=== PATIENT | male | born 1950 | race Caucasian/White ===

== ENCOUNTER 2017-10-16 05:22 | Emergency (ER) | payer BC ==
[~2017-10-16] VITALS: Ht 175.3 cm; Wt 96.8 kg
[~2017-10-16 05:22] MED LIST: AMOXICILLIN/CL875 MG PO; ASPIRIN LOW81 M1 PO; ATENOLOL25 MG PO; CHONDROITIN PO; GLUCOSAMINE1 TA1 PO; SIMVASTATIN10 MG PO; VITAMIN C500 M1 PO; VITAMIN D1000 UNIT PO
[2017-10-16 05:58] LABS: HEMATOCRIT 46.4 % (39.0-50.0); IMMATURE GRANULOCYTES 0.4 % (0.0-1.0); MEAN CELL VOLUME 85.3 fL CALC (80.0-100.0); MEAN CORPUSCULAR HGB 29.4 pG CALC (26.0-32.0); MEAN CORPUSCULAR HGB CONC 34.5 g/L CALC (32.0-36.0); NEUT# 5.17 thou/uL (1.82-7.42); RED BLOOD COUNT 5.44 mill/uL (4.70-6.10); RED CELL DISTRI WIDTH 12.1 % (11.5-15.5)
[2017-10-16 06:03] LABS: ALBUMIN 4.2 g/dL (3.2-5.0); ALKALINE PHOSPHATASE 84 u/l (38-126); ANION GAP 16 (6-22 (CALC)); BILIRUBIN, TOTAL 0.8 mg/dL (0.0-1.4); BUN 21 mg/dL (8-23); BUN/CREATININE RATIO 23 (12-20 (CALC)); CARBON DIOXIDE 20 mmol/l (22-30); CHLORIDE 109 mmol/l (95-108); CREATININE 0.9 mg/dL (0.7-1.3); GFR > 60 ML/MIN (>=60 (CALC)); GFR FOR AFR.AMER. > 60 ML/MIN (>=60 (CALC)); POTASSIUM 3.8 mmol/l (3.5-5.1); SGOT/AST 51 u/l (19-48); SGPT/ALT 38 u/l (11-66); SODIUM 141 mmol/l (137-146); TOTAL PROTEIN 7.2 g/dL (6.3-8.2)
[2017-10-16 06:15] LABS: MYOGLOBIN 100 ng/mL (0 - 121)
[2017-10-16 10:03] VITALS: BP 147/70
== END 2017-10-16 10:31 | disposition home or self-care (01) | DRG 312 ==
LOC: ED 05:22
PROVIDERS: Emergency Medicine
DX: R55 Syncope and collapse (principal); R00.1 Bradycardia, unspecified; R42 Dizziness and giddiness; Y93.F9 Activity, other caregiving; Y92.230 Patient room in hospital as the place of occurrence of the external cause

== ENCOUNTER 2018-08-29 12:36 | Observation (INO) | payer BC ==
[~2018-08-29] VITALS: Ht 30.5 cm; Wt 97.6 kg
[2018-08-29 13:14] LABS: HEMATOCRIT 49.5 % (39.0-50.0); HEMOGLOBIN 16.6 g/dl (14.0-18.0); IMMATURE GRANULOCYTES 0.4 % (0.0-5.0); MEAN CELL VOLUME 86.7 fL CALC (80.0-100.0); MEAN CORPUSCULAR HGB 29.1 pG CALC (26.0-32.0); MEAN CORPUSCULAR HGB CONC 33.5 g/L CALC (32.0-36.0); NEUT# 5.94 thou/uL (1.82-7.42); RED BLOOD COUNT 5.71 mill/uL (4.70-6.10); RED CELL DISTRI WIDTH 12.4 % (11.5-15.5)
[2018-08-29 13:23] LABS: ALBUMIN 4.2 g/dL (3.2-5.0); ALKALINE PHOSPHATASE 80 u/l (38-126); ANION GAP 15 (6-22 (CALC)); BILIRUBIN, TOTAL 0.9 mg/dL (0.0-1.4); BUN 21 mg/dL (8-23); BUN/CREATININE RATIO 22 (12-20 (CALC)); CHLORIDE 105 mmol/l (95-108); CREATININE 0.9 mg/dL (0.7-1.3); GFR > 60 ML/MIN (>=60 (CALC)); GFR FOR AFR.AMER. > 60 ML/MIN (>=60 (CALC)); POTASSIUM 4.2 mmol/l (3.5-5.1); SGOT/AST 26 u/l (19-48); SODIUM 143 mmol/l (137-146); TOTAL PROTEIN 7.6 g/dL (6.3-8.2)
[2018-08-29 13:41] LABS: CARBON DIOXIDE 27 mmol/l (22-30)
[2018-08-29 13:53] LABS: D-DIMER 0.39 mg/L (0.19-0.60); INTERNATIONAL NORMALIZED RATIO 1.1 RATIO (0.7-1.3); PROTHROMBIN TIME 11.1 SECONDS (9.0-12.5)
[2018-08-29] MEDS ORDERED: AMLODIPINE5 MG PO (14:17)
[2018-08-29 16:14] VITALS: BP 150/102
[2018-08-29 19:39] VITALS: BP 156/95
[2018-08-30 00:31] VITALS: BP 124/75
[2018-08-30 04:45] VITALS: BP 128/85
[2018-08-30 05:57] LABS: HEMATOCRIT 45.1 % (39.0-50.0); HEMOGLOBIN 15.1 g/dl (14.0-18.0); IMMATURE GRANULOCYTES 0.5 % (0.0-5.0); MEAN CELL VOLUME 87.6 fL CALC (80.0-100.0); MEAN CORPUSCULAR HGB 29.3 pG CALC (26.0-32.0); MEAN CORPUSCULAR HGB CONC 33.5 g/L CALC (32.0-36.0); NEUT# 5.35 thou/uL (1.82-7.42); RED BLOOD COUNT 5.15 mill/uL (4.70-6.10); RED CELL DISTRI WIDTH 12.4 % (11.5-15.5)
[2018-08-30 06:10] LABS: ALBUMIN 3.4 g/dL (3.2-5.0); ALKALINE PHOSPHATASE 69 u/l (38-126); ANION GAP 12 (6-22 (CALC)); BUN 20 mg/dL (8-23); BUN/CREATININE RATIO 21 (12-20 (CALC)); CARBON DIOXIDE 25 mmol/l (22-30); CHLORIDE 107 mmol/l (95-108); GFR > 60 ML/MIN (>=60 (CALC)); GFR FOR AFR.AMER. > 60 ML/MIN (>=60 (CALC)); POTASSIUM 4.4 mmol/l (3.5-5.1); SGOT/AST 21 u/l (19-48); SODIUM 140 mmol/l (137-146); TOTAL PROTEIN 6.2 g/dL (6.3-8.2)
[2018-08-30 08:49] VITALS: BP 133/79
[2018-08-30 11:23] VITALS: BP 133/85
[2018-08-30 15:38] VITALS: BP 142/73
[2018-08-30] MEDS ORDERED: LOPRESSOR25 MG PO (16:55)
[2018-08-30] MEDS ORDERED: ELIQUIS2.5 MG PO (17:30)
== END 2018-08-30 17:20 | disposition home or self-care (01) | DRG 310 ==
LOC: ED 12:36 → ED-I 13:54 → ED 14:07 → MS2 14:07
PROVIDERS: Emergency Medicine; ADMIT Internal Medicine Nephrology; ATTEND Internal Medicine Nephrology
DX: I48.1 Persistent atrial fibrillation (principal); I10 Essential (primary) hypertension; E78.5 Hyperlipidemia, unspecified; E66.9 Obesity, unspecified; M47.819 Spondylosis without myelopathy or radiculopathy, site unspecified; Z87.891 Personal history of nicotine dependence; Z82.49 Family history of ischemic heart disease and other diseases of the circulatory system
CPT/HCPCS: G0378

== ENCOUNTER 2019-11-22 | Emergency (ER) | payer BC ==
[~2019-11-22] MED LIST changes: +AMLODIPINE5 MG PO; +ELIQUIS2.5 MG PO; +LOPRESSOR25 M1 PO; +LOPRESSOR25 MG PO
[2019-11-22 15:53] LABS: HEMATOCRIT 45.8 % (39.0-50.0); HEMOGLOBIN 15.4 g/dl (14.0-18.0); IMMATURE GRANULOCYTES 0.7 % (0.0-5.0); MEAN CELL VOLUME 85.9 fL CALC (80.0-100.0); MEAN CORPUSCULAR HGB 28.9 pG CALC (26.0-32.0); MEAN CORPUSCULAR HGB CONC 33.6 g/L CALC (32.0-36.0); NEUT# 12.11 thou/uL (1.82-7.42); RED BLOOD COUNT 5.33 mill/uL (4.70-6.10); RED CELL DISTRI WIDTH 12.6 % (11.5-15.5)
[2019-11-22 16:13] LABS: ALKALINE PHOSPHATASE 78 u/l (38-126); ANION GAP 12 (6-22 (CALC)); BILIRUBIN, TOTAL 0.9 mg/dL (0.0-1.4); BUN 20 mg/dL (8-23); BUN/CREATININE RATIO 25 (12-20 (CALC)); CARBON DIOXIDE 25 mmol/l (22-30); CHLORIDE 107 mmol/l (95-108); CREATININE 0.8 mg/dL (0.7-1.3); GFR > 60 ML/MIN (>=60 (CALC)); GFR FOR AFR.AMER. > 60 ML/MIN (>=60 (CALC)); POTASSIUM 4.4 mmol/l (3.5-5.1); SODIUM 139 mmol/l (137-146); TOTAL PROTEIN 7.4 g/dL (6.3-8.2)
[2019-11-22 16:14] LABS: ACT PARTIAL THROMBO TIME 26.1 SECONDS (20.0-32.5); INTERNATIONAL NORMALIZED RATIO 1.1 RATIO (0.7-1.3); PROTHROMBIN TIME 11.4 SECONDS (9.0-12.5)
[2019-11-22 16:30] LABS: ALBUMIN 4.1 g/dL (3.2-5.0); SGOT/AST 37 u/l (19-48)
[2019-11-22 16:48] LABS: URINE BILIRUBIN - DIPSTICK NEGATIVE (NEGATIVE); URINE BLOOD DIPSTICK NEGATIVE (NEGATIVE); URINE COLOR YELLOW; URINE GLUCOSE - DIPSTICK NEGATIVE (NEGATIVE); URINE KETONE TRACE mg/dL (NEGATIVE); URINE LEUK ESTERASE NEGATIVE (NEGATIVE); URINE NITRITE - DIPSTICK NEGATIVE (Negative); URINE PROTEIN - DIPSTICK NEGATIVE (NEG-TRACE); URINE SPECIFIC GRAVITY 1.025; URINE UROBILINOGEN - DIPSTICK 0.2 E.U./dL (0.2)
[2020-03-08] MEDS ORDERED: VITAMIN C500 M6 PO (10:02)
[2020-03-08] MEDS ORDERED: VITAMIN D1000 UNIT PO (10:02)
[2020-03-08] MEDS ORDERED: [UNRECOGNIZED DRUG - OTHER] PO (10:03)
== END 2019-11-22 19:30 | disposition short-term general hospital (02) | DRG 536 ==
DX: S72.001A Fracture of unspecified part of neck of right femur, initial encounter for closed fracture (principal); S80.211A Abrasion, right knee, initial encounter; S50.311A Abrasion of right elbow, initial encounter; M25.551 Pain in right hip; I10 Essential (primary) hypertension; W11.XXXA Fall on and from ladder, initial encounter; Y92.009 Unspecified place in unspecified non-institutional (private) residence as the place of occurrence of the external cause

== ENCOUNTER 2020-03-15 07:01 | Day surgery (SDC) | payer BC ==
[~2020-03-15] VITALS: Ht 175.3 cm; Wt 100.2 kg
[~2020-03-15 07:01] MED LIST changes: +VITAMIN C500 M6 PO; +[UNRECOGNIZED DRUG - OTHER] PO
[2020-03-15 09:19] VITALS: BP 116/63
== END 2020-03-15 09:38 | disposition home or self-care (01) | DRG 392 ==
LOC: ENDO 07:01
PROVIDERS: ATTEND Surgery
PROC: 0DJD8ZZ Inspection of Lower Intestinal Tract, Via Natural or Artificial Opening Endoscopic (ICD-10-PCS; principal; 2020-03-15)
DX: K57.30 Diverticulosis of large intestine without perforation or abscess without bleeding (principal); K64.8 Other hemorrhoids; I10 Essential (primary) hypertension; I48.91 Unspecified atrial fibrillation; Z79.01 Long term (current) use of anticoagulants; Z86.010 Personal history of colon polyps; Z11.59 Encounter for screening for other viral diseases
CPT/HCPCS: J0461